=== PATIENT | female | born 1960 | race Caucasian/White ===

== ENCOUNTER 2018-02-22 13:11 | Emergency (ER) | payer MEDICAID ==
[~2018-02-22] VITALS: Ht 565.3 cm; Wt 57.0 kg
[~2018-02-22 13:11] MED LIST: ACET1TAB12 PO; NO HOME MEDS; ONDA4TAB12 PO; PANT40TA4 PO
[2018-02-22 13:27] VITALS: BP 145/118
[2018-02-22] MEDS ORDERED: ACET-3067 PO (14:04)
[2018-02-22] MEDS ORDERED: predniSONE 20 mg tablet PO ONE (14:05)
[2018-02-22] MEDS ORDERED: ketorolac tromethamine 15mg/ml inj. IM ONE (14:05)
[2018-02-22] MEDS ORDERED: ketorolac trometh inj. 60 MG/2 ML VIAL IM ONE (14:20)
== END 2018-02-22 14:26 | disposition home or self-care (01) ==
LOC: ER 13:11
DX: G89.29 Other chronic pain (principal); M25.512 Pain in left shoulder; M54.9 Dorsalgia, unspecified; M19.90 Unspecified osteoarthritis, unspecified site; F12.90 Cannabis use, unspecified, uncomplicated; Z98.51 Tubal ligation status; Z88.6 Allergy status to analgesic agent
CPT/HCPCS: 96372; 99283; A4565; J1885; J7512

== ENCOUNTER 2018-02-26 08:12 | Emergency (ER) | payer MEDICAID ==
[~2018-02-26] VITALS: Ht 162.6 cm; Wt 58.0 kg
[~2018-02-26 08:12] MED LIST changes: +ACET-3067 PO
[2018-02-26] MEDS ORDERED: NAPR-56 PO (08:40)
[2018-02-26 08:49] VITALS: BP 145/89
== END 2018-02-26 08:50 | disposition home or self-care (01) ==
LOC: ER 08:13
DX: M25.512 Pain in left shoulder (principal); G89.29 Other chronic pain; M19.90 Unspecified osteoarthritis, unspecified site; F12.90 Cannabis use, unspecified, uncomplicated; Z98.51 Tubal ligation status; Z98.890 Other specified postprocedural states; Z88.6 Allergy status to analgesic agent; Z79.899 Other long term (current) drug therapy
CPT/HCPCS: 99282; A4565

== ENCOUNTER 2018-06-04 01:06 | Emergency (ER) | payer MEDICAID ==
[~2018-06-04] VITALS: Ht 180.3 cm; Wt 48.8 kg
[~2018-06-04 01:06] MED LIST changes: -ACET-3067 PO
[2018-06-04 01:14] VITALS: BP 189/108
== END 2018-06-04 02:09 | disposition home or self-care (01) ==
LOC: ER 01:07
DX: S20.222A Contusion of left back wall of thorax, initial encounter (principal); S60.212A Contusion of left wrist, initial encounter; G89.29 Other chronic pain; M19.90 Unspecified osteoarthritis, unspecified site; F12.90 Cannabis use, unspecified, uncomplicated; Z88.6 Allergy status to analgesic agent; Z79.899 Other long term (current) drug therapy; Y04.8XXA Assault by other bodily force, initial encounter; Y93.89 Activity, other specified; Y92.89 Other specified places as the place of occurrence of the external cause; Y99.8 Other external cause status
CPT/HCPCS: 29125; 71046; 73110; 99283

== ENCOUNTER 2020-06-25 17:11 | Emergency (ER) | payer MEDICAID ==
[~2020-06-25] VITALS: Ht 162.6 cm; Wt 68.8 kg
[~2020-06-25 17:11] MED LIST changes: -PANT40TA4 PO; +PANT40TA54 PO
[2020-06-25 18:38] VITALS: BP 157/80
[2020-06-25 18:45] LABS: HEMOGLOBIN 13.8 g/dl (12.0-16.0); MEAN PLATELET VOLUME 7.1 FL (7.4-10.4)
[2020-06-25 18:47] LABS: BASOPHILS # (AUTO) 0.1 X10'3 (0-0.2); BASOPHILS % (AUTO) 1.1 % (0-1); EOSINOPHILS # (AUTO) 0.3 X10'3 (0-0.9); EOSINOPHILS % (AUTO) 3.3 % (0-6); HEMATOCRIT 41.2 % (35.0-45.0); LYMPHOCYTES # (AUTO) 2.8 X10'3 (1.1-4.8); LYMPHOCYTES % (AUTO) 28.1 % (21-51); MEAN CORPUSCULAR HEMOGLOBIN 35.6 PG (27.0-31.0); MEAN CORPUSCULAR HGB CONC 33.5 g/dL (33.0-36.5); MEAN CORPUSCULAR VOLUME 106.3 FL (78-98); MONOCYTES % (AUTO) 10.3 % (2-12); NEUTROPHILS # (AUTO) 5.7 X10'3 (1.8-7.7); NEUTROPHILS % (AUTO) 57.2 % (42-75); PLATELET COUNT 294 X10'3 (140-440); RED BLOOD COUNT 3.88 X10'6 (4.20-5.60); RED CELL DISTRIBUTION WIDTH 12.8 % (11.5-14.5)
[2020-06-25 18:57] LABS: ALANINE AMINOTRANSFERASE 34 U/L (12-78); ALBUMIN 3.7 G/DL (3.4-5.0); ALBUMIN/GLOBULIN RATIO 1.1 (1.1-1.5); ALKALINE PHOSPHATASE 72 IU/L (46-116); ANION GAP 10 (8-16); ASPARTATE AMINO TRANSFERASE 17 U/L (10-37); BILIRUBIN,TOTAL 0.2 MG/DL (0.1-1.0); BLOOD UREA NITROGEN 24 MG/DL (7-18); BUN/CREATININE RATIO 22.4 (6.6-38.0); CALCIUM 8.7 MG/DL (8.5-10.1); CHLORIDE 106 MMOL/L (99-107); CREATININE 1.07 MG/DL (0.40-0.90); GLUCOSE 106 MG/DL (70-104); POTASSIUM 4.2 MMOL/L (3.5-5.1); SODIUM 139 MMOL/L (135-145); TOTAL CARBON DIOXIDE 23.3 MMOL/L (24-32); TOTAL PROTEIN 7.1 G/DL (6.4-8.2); eGFR 52 ML/MIN
== END 2020-06-25 19:57 | disposition home or self-care (01) ==
LOC: ER 17:11
DX: R20.2 Paresthesia of skin (principal); R25.2 Cramp and spasm; G89.29 Other chronic pain; F41.9 Anxiety disorder, unspecified; F12.90 Cannabis use, unspecified, uncomplicated; Z98.51 Tubal ligation status; Z98.890 Other specified postprocedural states; Z72.89 Other problems related to lifestyle; Z88.8 Allergy status to other drugs, medicaments and biological substances; Z79.899 Other long term (current) drug therapy
CPT/HCPCS: 36415; 80053; 83880; 85025; 99283

== ENCOUNTER 2020-07-06 10:28 | Emergency (ER) | payer MEDICAID ==
[~2020-07-06] VITALS: Ht 162.6 cm; Wt 70.0 kg
[2020-07-06] MEDS ORDERED: LIDOcaine Viscous 15ml cup MM PRN (11:05)
== END 2020-07-06 12:43 | disposition home or self-care (01) ==
LOC: ER 10:28
DX: J02.9 Acute pharyngitis, unspecified (principal); G89.29 Other chronic pain; M19.90 Unspecified osteoarthritis, unspecified site; F12.90 Cannabis use, unspecified, uncomplicated; Z72.89 Other problems related to lifestyle; Z98.51 Tubal ligation status; Z98.890 Other specified postprocedural states; Z88.8 Allergy status to other drugs, medicaments and biological substances; Z79.899 Other long term (current) drug therapy
CPT/HCPCS: 87081; 87880; 99283

== ENCOUNTER 2023-09-08 19:47 | Emergency (ER) | payer MEDICARE, MEDICAID ==
[~2023-09-08] VITALS: Ht 162.6 cm; Wt 74.0 kg
[2023-09-08 19:48] VITALS: BP 131/71; PULSE 100; RESP 20; TEMP 97.8; O2SAT 96
== END 2023-09-09 05:30 | disposition home or self-care (01) ==
LOC: ER 19:48
DX: M79.604 Pain in right leg (principal); M79.89 Other specified soft tissue disorders; I10 Essential (primary) hypertension; F12.90 Cannabis use, unspecified, uncomplicated; Z88.6 Allergy status to analgesic agent; Z79.899 Other long term (current) drug therapy; Z98.51 Tubal ligation status
CPT/HCPCS: 93971; 99284

== ENCOUNTER 2023-09-28 12:02 | Outpatient (CLI) | payer OTHER, MEDICAID | END 2023-09-28 23:59 | disposition home or self-care (01) | LOC: RAD 12:02 | PROVIDERS: ATTEND Family Medicine | DX: R09.02 Hypoxemia (principal) | CPT/HCPCS: 71046 ==